=== PATIENT | female | born 1950 ===

== ENCOUNTER → 2024-11-17 16:00 | Outpatient (BNVA) | payer MEDICARE, MEDICAID, SELFPAY | PROVIDERS: PCP Family Medicine; Visit Provider Family Medicine | DX: I10 Essential (primary) hypertension (principal); Z86.73 Personal history of transient ischemic attack (TIA), and cerebral infarction without residual deficits; G81.94 Hemiplegia, unspecified affecting left nondominant side; R26.89 Other abnormalities of gait and mobility | CPT/HCPCS: 80053; 82607; 84443; 85025 ==

== ENCOUNTER → 2025-03-26 10:20 | Outpatient (BNVA) | payer MEDICARE, MEDICAID, SELFPAY | PROVIDERS: PCP Family Medicine; Visit Provider Family Medicine | DX: I10 Essential (primary) hypertension (principal); R63.4 Abnormal weight loss; Z86.73 Personal history of transient ischemic attack (TIA), and cerebral infarction without residual deficits; G81.94 Hemiplegia, unspecified affecting left nondominant side; Z11.59 Encounter for screening for other viral diseases | CPT/HCPCS: 80053; 80061; 84439; 84443; 85025; 86803 ==